=== PATIENT | female | born 1950 | race Caucasian/White ===

== ENCOUNTER 2018-05-10 09:06 | Day surgery (SDC) | payer MEDICARE ==
[2018-05-10] VITALS (8 sets, daily range): BP systolic 101–118; BP diastolic 57–74
[~2018-05-10] VITALS: Ht 170.2 cm; Wt 74.0 kg
[2018-05-10] MEDS ORDERED: sod bicarbonate 150mEq in D5W 1,150 ML IV ONE (09:30)
[2018-05-10] MEDS ORDERED: diphenhydrAMINE 25mg capsule PO PRN (09:30)
[2018-05-10] MEDS ORDERED: LISI-600 PO (09:55)
[2018-05-10] MEDS ORDERED: FURO-150 PO (09:55)
[2018-05-10] MEDS ORDERED: ASPI-1265 PO (09:55)
[2018-05-10] MEDS ORDERED: CARV-49 PO (09:55)
[2018-05-10] MEDS ORDERED: SPIR25TA5 PO (09:55)
[2018-05-10 10:08] LABS: BASOPHILS % (AUTO) 0.5 % (0-1); EOSINOPHILS # (AUTO) 0.3 X10'3 (0-0.9); EOSINOPHILS % (AUTO) 5.9 % (0-6); HEMATOCRIT 37.4 % (35.0-45.0); HEMOGLOBIN 12.8 g/dl (12.0-16.0); LYMPHOCYTES # (AUTO) 1.1 X10'3 (1.1-4.8); MEAN CORPUSCULAR HEMOGLOBIN 30.7 PG (27.0-31.0); MEAN CORPUSCULAR HGB CONC 34.3 g/dL (33.0-36.5); MEAN CORPUSCULAR VOLUME 89.6 FL (78-98); MEAN PLATELET VOLUME 9.9 FL (7.4-10.4); MONOCYTES # (AUTO) 0.4 X10'3 (0-0.9); MONOCYTES % (AUTO) 7.9 % (2-12); NEUTROPHILS # (AUTO) 3.5 X10'3 (1.8-7.7); NEUTROPHILS % (AUTO) 64.7 % (42-75); PLATELET COUNT 154 X10'3 (140-440); RED BLOOD COUNT 4.18 X10'6 (4.20-5.60); RED CELL DISTRIBUTION WIDTH 14.3 % (11.5-14.5); WHITE BLOOD COUNT 5.4 X10'3 (4.5-11.0)
[2018-05-10 10:12] LABS: ALBUMIN 3.8 G/DL (3.4-5.0); ANION GAP 10 (8-16); BLOOD UREA NITROGEN 17 MG/DL (7-18); BUN/CREATININE RATIO 17.5 (6.6-38.0); CALCIUM 9.5 MG/DL (8.5-10.1); CHLORIDE 106 MMOL/L (99-107); CREATININE 0.97 MG/DL (0.40-0.90); GLUCOSE 100 MG/DL (70-104); MAGNESIUM 2.1 MG/DL (1.5-2.4); POTASSIUM 4.6 MMOL/L (3.5-5.1); SODIUM 141 MMOL/L (135-145); TOTAL CARBON DIOXIDE 24.8 MMOL/L (24-32); eGFR 57 ML/MIN
[2018-05-10 10:23] LABS: INR 1.1 INR; PROTHROMBIN TIME 11.1 SECONDS (9.0-12.0)
[2018-05-10] MEDS ORDERED: vancomycin 1,000mg inj ONE (10:53)
--- NOTE | 2018-05-10 11:00 | NUR ---
deonna and lynette ordered and started in computer lab assistant
[2018-05-10] MEDS ORDERED: Cefazolin 2GM/100ML NS IVPB 100 ML IV ONE (11:05)
[2018-05-10] MEDS ORDERED: cefazolin/dext.iso 2gm/100ml 100 ML IV ONE (11:10)
[2018-05-10] MEDS ORDERED: lidocaine 1%/epinephrine 1:100,000 injection 50ml vial ONE (11:20)
[2018-05-10] MEDS ORDERED: midazolam 2 mg/2 ml injection ONE ×4 (11:20→13:30)
[2018-05-10] MEDS ORDERED: fentaNYL/PF 50MCG/1 ML 2ML syringe ONE ×2 (11:20→12:39)
[2018-05-10] MEDS ORDERED: iohexol 350 MG/ML 50ML vial IV ONE ×2 (11:21→12:44)
[2018-05-10] MEDS ORDERED: ketorolac tromethamine 15mg/ml inj. IV ONE (14:30)
--- NOTE | 2018-05-10 15:49 | NUR ---
dr. ba was notified of mass found on chest xray and he ordered an echo stat, patient states she has already had it seen and biopsied, and had an echo of it, and it has been present for over 20 years, and is benign. lab support service tech was called to tell dr. ba about this, and so echo was cancelled, and she will follow up with dr. schmitt ENT for the mass. telephone orders verified.
== END 2018-05-10 17:00 | disposition home or self-care (01) ==
LOC: SSTAY O 09:06
PROVIDERS: ATTEND Internal Medicine Cardiovascular Disease
DX: I42.0 Dilated cardiomyopathy (principal); I44.7 Left bundle-branch block, unspecified; I50.9 Heart failure, unspecified
CPT/HCPCS: 33225; 33249; 36415; 71046; 80048; 83735; 85025; 85610; 93005; 93641; 99152; 99153; C1882; C1887; C1895; C1900; J0690; J2250; J3010; J3370; J3490; Q0163; Q9967; A4620; C1769; C1894

== ENCOUNTER 2023-08-03 09:22 | Day surgery (SDC) | payer MEDICARE ==
[2023-08-03] VITALS (9 sets, daily range): BP systolic 120–154; BP diastolic 65–87; PULSE 67–74; RESP 14–25; TEMP 98.2; O2SAT 93–98
[~2023-08-03] VITALS: Ht 167.6 cm; Wt 81.9 kg
[~2023-08-03 09:22] MED LIST: ASPI-1265 PO; CARV-49 PO; FURO-150 PO; LISI20TA28 PO; SPIR25TA5 PO
[2023-08-03] MEDS ORDERED: cefazolin 2gm/D5W 100mL 100 ML IV ONE (09:50)
[2023-08-03] MEDS: VANCOMYCIN 1,500MG in normal saline IV soln 300 ML IV ONE (10:35)
[2023-08-03 10:46] LABS: BASOPHILS % (AUTO) 0.5 % (0-1); EOSINOPHILS % (AUTO) 0.5 % (0-6); HEMATOCRIT 42.4 % (35.0-45.0); HEMOGLOBIN 14.4 g/dl (12.0-16.0); LYMPHOCYTES # (AUTO) 1.1 X10'3 (1.1-4.8); MEAN CORPUSCULAR HEMOGLOBIN 30.9 PG (27.0-31.0); MEAN CORPUSCULAR VOLUME 90.9 FL (78-98); MEAN PLATELET VOLUME 8.9 FL (7.4-10.4); MONOCYTES # (AUTO) 0.2 X10'3 (0-0.9); MONOCYTES % (AUTO) 3.2 % (2-12); NEUTROPHILS # (AUTO) 5.6 X10'3 (1.8-7.7); NEUTROPHILS % (AUTO) 79.8 % (42-75); PLATELET COUNT 168 X10'3 (140-440); RED BLOOD COUNT 4.67 X10'6 (4.20-5.60); RED CELL DISTRIBUTION WIDTH 14.2 % (11.5-14.5); WHITE BLOOD COUNT 7.1 X10'3 (4.5-11.0)
[2023-08-03 10:53] LABS: ALBUMIN 4.3 G/DL (3.4-5.0); ANION GAP 10 (8-16); BLOOD UREA NITROGEN 12 MG/DL (7-18); BUN/CREATININE RATIO 12.5 (10.0-20.0); CALCIUM 9.5 MG/DL (8.5-10.1); CHLORIDE 105 MMOL/L (99-107); CREATININE 0.96 MG/DL (0.40-0.90); GLUCOSE 97 MG/DL (70-104); MAGNESIUM 2.1 MG/DL (1.5-2.4); POTASSIUM 4.1 MMOL/L (3.5-5.1); SODIUM 140 MMOL/L (135-145); eCRCL 49 ML/MIN; eGFR 57 ML/MIN
[2023-08-03] MEDS ORDERED: LISI5TAB22 PO (11:13)
[2023-08-03] MEDS ORDERED: MAGN400T39 PO (11:14)
[2023-08-03] MEDS ORDERED: MULT-1085 PO (11:15)
[2023-08-03] MEDS ORDERED: VITA800012 PO (11:15)
[2023-08-03] MEDS ORDERED: ERGO400C PO (11:16)
[2023-08-03] MEDS ORDERED: CYAN50007 PO (11:16)
[2023-08-03] MEDS ORDERED: LIDOCAINE 2%/EPI 1:100,000 inj. Multi-dose 20 ML VIAL ONE (12:03)
[2023-08-03] MEDS ORDERED: midazolam 1 mg/ML 2ml injection ONE (12:03)
[2023-08-03] MEDS ORDERED: fentaNYL/PF 50MCG/1 ML 2ML syringe ONE (12:03)
[2023-08-03] MEDS ORDERED: vancomycin 1,000mg inj ONE (12:03)
[2023-08-03] MEDS ORDERED: LIDOcaine 1% w/EPI 1:100,000 inj. MDV 50 ML VIAL ONE (12:04)
[2023-08-03] MEDS ORDERED: HYDROmorphone 1 mg/ml syringe ONE (12:48)
[2023-08-03] MEDS ORDERED: normal saline 1000ml 1,000 ML IV SCH (13:45)
[2023-08-03] MEDS ORDERED: HYDROcodone/acetaminophen 10/325mg tab PO PRN (13:45)
[2023-08-03] MEDS ORDERED: HYDROcodone/acetaminophen 5mg/325mg tablet PO PRN (13:45)
== END 2023-08-03 15:20 | disposition home or self-care (01) ==
LOC: SSTAY O 09:22
PROVIDERS: ATTEND Internal Medicine Cardiovascular Disease
DX: Z45.010 Encounter for checking and testing of cardiac pacemaker pulse generator [battery] (principal); I42.0 Dilated cardiomyopathy; Z79.82 Long term (current) use of aspirin; Z79.899 Other long term (current) drug therapy
CPT/HCPCS: 33229; 36415; 80048; 83735; 85025; 85610; 93005; 99152; 99153; A6258; C2621; J1170; J2250; J3010; J3370; J3490; J7030; J7040